=== PATIENT | male | born 1965 | race Caucasian/White ===

== ENCOUNTER → 2016-11-30 | Outpatient (CLI) | payer OTHER ==
--- NOTE | 2016-11-30 19:43 | DX ---
Lumbar Spine 2 Views INDICATION: Follow up fusion. No priors for comparison. FINDINGS: Posterior fusion from L3 to S1 shows bilateral transpedicular hardware, terminating in the anterior one-third of the vertebral bodies at the lumbar level, and on one side protruding slightly i n the precortex space at S1. The intervertebral disc cages are also seen at L3-L4 and L4-L5. There is reversal of the normal lumbar lordosis at the fused levels. There is moderate disc height loss at L2 -L3. No compression deformity. Patient has mild levoscoliosis. IMPRESSION: Postoperative findings as above.
== END ==
LOC: FIMAGING 10:08 → EDSTATUS 11:34
PROVIDERS: ATTEND Physician Assistant Surgical
DX: Z98.1 Arthrodesis status (principal)